=== PATIENT | female | born 1960 | race Caucasian/White ===

== ENCOUNTER 2017-07-30 12:31 | Emergency (ER) | payer MEDICAID ==
[~2017-07-30] VITALS: Ht 170.2 cm; Wt 70.0 kg
[2017-07-30 12:47] VITALS: BP 101/64
== END 2017-07-30 14:18 | disposition home or self-care (01) ==
LOC: ED 14:05
DX: F60.3 Borderline personality disorder (principal)
CPT/HCPCS: 99284